=== PATIENT | female | born 1930 | race Caucasian/White ===

== ENCOUNTER 2017-02-28 15:04 | Inpatient (IN) | payer MEDICARE, OTHER ==
[~2017-02-28] VITALS: Ht 149.9 cm; Wt 69.3 kg
[2017-02-28] MEDS ORDERED: SOD CHLORIDE 0.9% 1,000 ML IV STA (15:32)
[2017-02-28 15:57] LABS: BASOPHIL # 0.1 10^3/ul (0.0-0.1); BASOPHILS % 1.1 % (0.0-2.0); EOSINOPHILS # 0.2 10^3/ul (0.0-0.5); EOSINOPHILS % 3.3 % (0.0-7.0); HEMATOCRIT 38.5 % (37.0-47.0); HEMOGLOBIN 13.3 g/dl (12.0-16.0); LYMPHOCYTES # 2.4 10^3/ul (0.8-2.9); LYMPHOCYTES % 32.5 % (15.0-51.0); MEAN CORPUSCULAR HEMOGLOBIN 31.1 pg (29.0-33.0); MEAN CORPUSCULAR HGB CONC 34.5 g/dl (32.0-37.0); MEAN CORPUSCULAR VOLUME 90.2 fl (82.0-101.0); MEAN PLATELET VOLUME 10.2 fl (7.4-10.4); MONOCYTE # 0.9 10^3/ul (0.3-0.9); MONOCYTES % 11.6 % (0.0-11.0); NEUTROPHIL # 3.8 10^3/ul (1.6-7.5); NEUTROPHILS % 51.2 % (39.0-77.0); PLATELET COUNT 231 10^3/UL (140-415); RED BLOOD COUNT 4.27 10^6/ul (4.20-5.40); RED CELL DISTRIBUTION WIDTH 13.2 % (11.5-14.5); WHITE BLOOD COUNT 7.3 10^3/ul (4.8-10.8)
[2017-02-28 16:07] LABS: ADD UMIC YES; UR ASCORBIC ACID 40 mg/dL (NEGATIVE); UR BILIRUBIN (Dip) NEGATIVE (NEGATIVE); UR BLOOD (Dip) 1+ mg/dL (NEGATIVE); UR CLARITY CLEAR (CLEAR); UR COLOR YELLOW (YELLOW); UR GLUCOSE (Dip) NEGATIVE (NEGATIVE); UR KETONES (Dip) NEGATIVE (NEGATIVE); UR LEUKOCYTE ESTERASE (Dip) NEGATIVE Leu/ul (NEGATIVE); UR NITRITE (Dip) NEGATIVE (NEGATIVE); UR RBC 8 /HPF (0-5); UR SPECIFIC GRAVITY (Dip) 1.017 (1.003-1.030); UR TOTAL PROTEIN (Dip) NEGATIVE (NEGATIVE); UR UROBILINOGEN (Dip) NEGATIVE (NEGATIVE)
[2017-02-28 16:19] LABS: ALANINE AMINOTRANSFERASE 30 IU/L (13-69); ALBUMIN 3.9 g/dl (3.3-4.9); ALBUMIN/GLOBULIN RATIO 0.92; ALKALINE PHOSPHATASE 98 IU/L (42-121); ANION GAP 19 (8-16); ASPARTATE AMINO TRANSFERASE 25 IU/L (15-46); BLOOD UREA NITROGEN 16 mg/dl (7-20); CALCIUM 8.9 mg/dl (8.4-10.2); CARBON DIOXIDE 26 mmol/L (21-31); CHLORIDE 103 mmol/L (97-110); CREATININE 0.64 mg/dl (0.44-1.00); GLUCOSE 104 mg/dl (70-220); POTASSIUM 3.8 mmol/L (3.5-5.1); SODIUM 144 mmol/L (135-144); TOTAL PROTEIN 8.1 g/dl (6.1-8.1)
[2017-02-28 16:33] LABS: TROPONIN-I < 0.012 ng/ml (0.00-0.12)
[2017-02-28] MEDS ORDERED: OXYB5TAB7 PO (16:57)
[2017-02-28] MEDS ORDERED: IBUP-1542 PO (16:58)
[2017-02-28] MEDS ORDERED: MECL-77 PO (16:58)
[2017-02-28] MEDS ORDERED: AMLO5TAB4 PO (16:59)
[2017-02-28] MEDS ORDERED: IOHEXOL 100 ML ONE (17:05)
[2017-02-28] MEDS ORDERED: SOD CHLORIDE 0.9% 100 ML ONE (17:05)
--- NOTE | 2017-02-28 17:10 | ERA ---
ER Documentation Chief Complaint Date/Time DATE: 02/28/17 TIME: 17:04 Chief Complaint Per Daughter Mother has been altered with slurred speech since yesterday HPI 86-year-old woman brought in by daughter for slurred speech and right-sided facial weakness beginning around 5 PM yesterday about 24 hours ago. Daughter states she has had no fevers or chills, no weakness in her arms or legs, no fall , no head injury, no seizure activity. ROS All systems reviewed and are negative except as per history of present illness. Medications Home Meds Reported Medications Amlodipine Besylate* (Norvasc*) 5 Mg Tablet, 5 MG PO BID, TAB 02/28/17 Ibuprofen* (Ibuprofen*) 600 Mg Tablet, 600 MG PO Q8 Y for NEEDED, TAB 02/28/17 Meclizine Hcl* (Meclizine Hcl*) 25 Mg Tablet, 12.5 MG PO NEEDED Y for DIZZINESS, TAB 02/28/17 Oxybutynin Chloride* (Ditropan*) 5 Mg Tab, 5 MG PO DAILY Y for PRN, TAB 02/28/17 Allergies Allergies: Coded Allergies: No Known Allergy (Unverified , 02/28/17) PMhx/Soc Hypertension Medical and Surgical Hx: pt denies Surgical Hx History of Surgery: No Anesthesia Reaction: No Hx Neurological Disorder: No Hx Respiratory Disorders: No Hx Cardiac Disorders: Yes (HTN) Hx Alcohol Use: No Hx Substance Use: No Hx Tobacco Use: No Smoking Status: Never smoker FmHx Family History: No diabetes Physical Exam Vitals Vital Signs Date Time Temp Pulse Resp B/P Pulse Ox O2 Delivery O2 Flow Rate FiO2 02/28/17 17:29 98.3 80 20 163/86 96 02/28/17 15:08 98.3 84 20 198/83 96 Physical Exam GENERAL: Well-developed, well-nourished, well-hydrated, in no apparent distress , looks nontoxic in appearance HEENT: Moist mucous membranes, pink conjunctiva, no cervical spine tenderness or step-off deformities, no goiter, no jaundice or icterus, extraocular movements intact without pain. No submandibular induration, and no pharyngeal erythema NEURO: Able to answer questions and follow commands, pupils equal round reactive to light, there is facial paresis on the right sparing the forehead, and dysarthria, no pronator drift, strength 5/5 in upper and lower extremities bilaterally CARDIAC: Regular rate and rhythm, no murmurs rubs or gallops LUNGS: Clear bilaterally no wheezing crackles or stridor ABDOMEN: Soft nontender, no guarding, no rigidity, no rebound, no psoas sign no obturator sign. Normoactive bowel sounds SKIN: Warm and dry to touch, no abrasions, contusions, or hematomas, no lacerations, no ecchymosis, no target lesions, and without ulcers EXTREMITIES: No clubbing cyanosis or edema, calves are bilaterally symmetrical, no Homans sign, no popliteal cord sign. Distal pulses equal and bilateral PSYCH: Normal affect without agitation or irritability Result Diagram: 02/28/17 1550 02/28/17 1550 Results 24 hrs Laboratory Tests Test 02/28/17 15:50 02/28/17 15:55 White Blood Count 7.310^3/ul Red Blood Count 4.2710^6/ul Hemoglobin 13.3g/dl Hematocrit 38.5% Mean Corpuscular Volume 90.2fl Mean Corpuscular Hemoglobin 31.1pg Mean Corpuscular Hemoglobin Concent 34.5g/dl Red Cell Distribution Width 13.2% Platelet Count 33143^3/UL Mean Platelet Volume 10.2fl Neutrophils % 51.2% Lymphocytes % 32.5% Monocytes % 11.6% Eosinophils % 3.3% Basophils % 1.1% Nucleated Red Blood Cells % 0.0/100WBC Neutrophils # 3.810^3/ul Lymphocytes # 2.410^3/ul Monocytes # 0.910^3/ul Eosinophils # 0.210^3/ul Basophils # 0.110^3/ul Nucleated Red Blood Cells # 0.010^3/ul Sodium Level 144mmol/L Potassium Level 3.8mmol/L Chloride Level 103mmol/L Carbon Dioxide Level 26mmol/L Anion Gap 19 Blood Urea Nitrogen 16mg/dl Creatinine 0.64mg/dl Glucose Level 104mg/dl Calcium Level 8.9mg/dl Total Bilirubin 1.0mg/dl Direct Bilirubin 0.00mg/dl Indirect Bilirubin 1.0mg/dl Aspartate Amino Transf (AST/SGOT) 25IU/L Alanine Aminotransferase (ALT/SGPT) 30IU/L Alkaline Phosphatase 98IU/L Troponin I < 0.012ng/ml Total Protein 8.1g/dl Albumin 3.9g/dl Globulin 4.20g/dl Albumin/Globulin Ratio 0.92 Lipase 158U/L Urine Color YELLOW Urine Clarity CLEAR Urine pH 6.0 Urine Specific [place] 1.017 Urine Ketones NEGATIVEmg/dL Urine Nitrite NEGATIVEmg/dL Urine Bilirubin NEGATIVEmg/dL Urine Urobilinogen NEGATIVEmg/dL Urine Leukocyte Esterase NEGATIVELeu/ul Urine Microscopic RBC 8/HPF Urine Microscopic WBC 1/HPF Urine Hemoglobin 1+mg/dL Urine Glucose NEGATIVEmg/dL Urine Total Protein NEGATIVEmg/dl Current Medications Medications (Trade) Dose Ordered Sig/Otto Route PRN Reason Start Time Stop Time Status Last Admin Dose Admin Sodium Chloride (NS) 1,000 ml @ 1,000 mls/hr Q1H STAT IV 02/28/17 15:32 02/28/17 16:31 DC 02/28/17 15:53 IV Flush 10 ml 10 ml STK-MED ONCE .ROUTE 02/28/17 17:05 02/28/17 17:06 DC 02/28/17 17:34 Sodium Chloride 100 ml @ ud STK-MED ONCE .ROUTE 02/28/17 17:05 02/28/17 17:06 DC 02/28/17 17:34 Iohexol (Omnipaque) 100 ml @ ud STK-MED ONCE .ROUTE 02/28/17 17:05 02/28/17 17:06 DC 02/28/17 17:35 Aspirin (Aspirin) 324 mg ONCE ONCE PO 02/28/17 18:30 02/28/17 18:31 DC Procedures/MDM IV line was established patient was placed on media monitor rhythm strip revealed a sinus rhythm at about 80 bpm with upright P and T waves. Patient was afebrile. EKG performed, read by me: 80 bpm, normal sinus rhythm, normal axis, no acute ST segment changes, narrow QRS complex, with good R-wave progression in precordial leads. Chest X-ray 1V Interpreted by me: Soft Tissue: No acute abnormalities Bones: No acute abnormalities Mediastinum/Cardiac Silhouette/Lungs: No acute abnormalities CT scan of the brain was performed that was negative for acute bleed mass or shift. CTA of the brain and neck was performed there was no vascular occlusion or stenosis noted in the brain or large vessels of the neck. Please refer to radiologist dictation for full report. CBC and electrolytes are normal, liver function tests normal, troponin negative , urine analysis negative for infection. I administered aspirin 324 mg p.o. for neuroprotective measures. It seems patient suffered a stroke yesterday she is out of the window for TPA and is not a candidate for neurologic endovascular intervention either. Patient will be managed medically and will be admitted to telemetry setting. Departure Diagnosis: Primary Impression: Stroke Qualified Code: I63.9 - Cerebrovascular accident (CVA), unspecified mechanism Additional Impression: Dysarthria Condition: FRANSISCO Galvez MD Feb 28, 2017 17:10
--- NOTE | 2017-02-28 17:22 | RADRPT ---
PROCEDURE: Chest x-ray CLINICAL INDICATION: Abdominal pain TECHNIQUE: Chest single view COMPARISON: None FINDINGS: There is mild cardiomegaly and an sclerotic aortic calcification. The pulmonary vessels are normal i n caliber. H minimal linear scarring in the left mid lung field. Lungs otherwise clear. Costophre donis angles are sharp. There is an oval subcutaneous calcification within the right axilla or right breast. IMPRESSION: 1. Mild cardiomegaly and an sclerotic aortic calcification. 2. No CHF or pneumonia. 3. Oval soft tissue calcification in the right axilla or right breast. This may represent calcifie d fibroadenoma versus calcified lymph node RPTAT: HH .John Cameron MD, MD Date Time Electronically viewed and signed by .John Cameorn MD, on 02/28/2017 17:21 .W/
--- NOTE | 2017-02-28 17:31 | RADRPT ---
PROCEDURE: CT Brain without contrast. CLINICAL INDICATION: Neurologic deficit TECHNIQUE: A CT of the brain was performed on multidetector high-resolution CT scanner utilizing a xial sections from the skull base through the vertex without contrast. One or more of the following dose reduction techniques were used: Automated exposure control, Adjustment of the mA and/or kV acc ording to patient size, and/or use of iterative reconstruction technique. DOSE: CTDI = 43 mGy and the DLP = 852 mGy-cm. COMPARISON: None available FINDINGS: No acute intracranial hemorrhage, significant mass effect or midline shift. Mild hypoattenuation of the cerebral white matter is compatible with chronic microvascular ischemic changes. Vascular calcif ications. Prominence of the cortical sulci and ventricles are related to mild cerebral volume loss. Left maxillary sinus fluid and mucosal thickening. IMPRESSION: No acute intracranial hemorrhage or mass effect. 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 RPTAT: AA .Flaco Garcia MD, MD Date Time Electronically viewed and signed by .Flaco Garcia MD, on 02/28/2017 17:31 .T/
[2017-02-28] MEDS ORDERED: ASPIRIN 81 MG TAB PO ONE (18:30)
--- NOTE | 2017-02-28 18:31 | RADRPT ---
PROCEDURE: CTA Neck. CLINICAL INDICATION: slurred speech TECHNIQUE: CTA of the neck was obtained. Sagittal and coronal reformations and MIPs were provided. T he administered radiation dose was CTDI vol = 18.15, 18.27 mGy, DLP = 701.12 mGy-cm. Images were ob tained prior following the intravenous contrast administration of 100 cc was Omnipaque 350 contrast. Coronal and sagittal as well as maximal intensity projection reformations were obtained. One or mo re of the following dose reduction techniques were used: Automated exposure control, Adjustment of t he mA and/or kV according to patient size, or Use of iterative reconstruction technique. COMPARISON: No prior studies are available for comparison. FINDINGS: CTA neck: Aorta: Normal in caliber. There is common origin of the innominate artery and left common carotid ar renuka systems of the arch. Right common carotid artery: Patent without evidence of stenosis. There is minimal calcific atherosc lerotic plaque at the bifurcation from the right common carotid artery. Right internal carotid artery: Patent without evidence of significant stenosis. The cervical right internal carotid artery is tortuous, with a kink noted at the C2 level. There is minimal eccentric c alcific atherosclerotic plaque near the origin of the right internal carotid artery. Right external carotid artery: Patent without evidence of stenosis. Left common carotid artery: Patent without evidence of stenosis. There is a mild calcific atheroscle rotic plaque at the bifurcation of the left common carotid artery. Left internal carotid artery: Patent without evidence of stenosis. The cervical left internal caroti d artery is tortuous. Left external carotid artery: Patent without evidence of stenosis. V1/V2 vertebral arteries: Patent bilaterally without evidence of stenosis. The proximal vertebral ar teries are tortuous bilaterally. Vertebral artery dominance: The right vertebral artery is slightly dominant. CT neck: There is no cervical adenopathy. The thyroid gland is enlarged and contains multiple heterogeneous t hyroid nodules, some demonstrating coarse calcifications. The largest nodule measures up to 18 mm a nd is located in the left thyroid lobe. There are emphysematous changes and scattered atelectasis a nd / or scarring in the partially imaged upper lungs. There is lucency surrounding a left anterior m andibular tooth, suggesting odontogenic disease. Recommend dental examination. There is diffuse subj ective osteopenia. There are multilevel degenerative changes of the cervical spine, most prominent a t C5-C6. IMPRESSION: 1. No evidence of bilateral internal carotid artery stenosis by NASCET criteria. 2. The thyroid gland is enlarged and contains multiple heterogeneous thyroid nodules, some demonstra ting coarse calcifications. The largest nodule measures up to 18 mm and is located in the left thyr oid lobe. Consider thyroid ultrasound for further evaluation. 3. Abnormal osseous lucency surrounding a left anterior mandibular tooth, suggesting odontogenic dis ease. Recommend dental examination. 4. Multilevel degenerative changes of the cervical spine, most prominent at C5-C6. Further findings as detailed above. RPTAT: QQ Physician Ashwini Date Time Electronically viewed and signed by Physician Ashwini on 02/28/2017 18:31 /
--- NOTE | 2017-02-28 18:50 | RADRPT ---
PROCEDURE: CTA Brain. CLINICAL INDICATION: slurred speech TECHNIQUE: The study was performed utilizing a GE 64-slice multidetector CT scanner. Direct spiral 0.63 mm axial sections were obtained through the intracranial vasculature with the use of 100 cc of Onipaque 350 nonionic intravenous contrast material. Coronal and sagittal MPRs as well as maximal intensity projection reformations were obtained. 3D images were also made. The images were reviewed on a PACS workstation. The CTDIvol is 18.15, 18.27 mGy and the DLP is 701.12 mGycm. COMPARISON: No prior studies are available for comparison. FINDINGS: The internal carotid arteries are patent and normal in caliber. There is mild scattered calcific ath erosclerotic plaque involving the cavernous internal carotid arteries bilaterally. The anterior cere bral and middle cerebral arteries are patent and normal in caliber. Anterior communicating artery is faintly seen. The vertebral arteries, basilar artery, superior cerebellar arteries, and posterior c erebral arteries are all normal in appearance. The vertebral artery is slightly dominant. There is suggestion of a small fenestration of the proximal basilar artery at the vertebral basilar junction, an embryologic anatomic variant. There is origin of the left posterior cerebral artery (hypo plastic left P1 segment). No cerebral aneurysm is identified. No vascular malformation is seen. The right transverse and sigmoid sinus and internal jugular venous system is dominant. There postsurgical changes of prior cataract surgery. There is mucosal disease and small air fluid level in the left maxillary sinus, suggesting to left m axillary sinusitis. There is mild mucosal disease and / or secretions noted in the dependent portion of the left sphenoid sinus. There is lucency surrounding a left anterior mandibular tooth, suggesting odontogenic disease. There is diffuse calvarial thickening with widening of the diploic spaces and regions of focal scler osis ("cotton wool" appearance), suggestive of calvarial Paget's disease. There are degenerative changes of the visualized cervical spine. IMPRESSION: 1. No evidence of occlusion, significant stenosis, or cerebral aneurysm of the [place] of [place] or i t's major proximal branches. 2. 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 3. Abnormal osseous lucency surrounding a left anterior mandibular tooth, suggesting odontogenic dis ease. Recommend dental examination. 4. Left maxillary sinus mucosal disease and small air fluid level, suggesting acute left maxillary s inusitis. 5. 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 RPTAT: QQ Kalani Lacy Physician Date Time Electronically viewed and signed by Kalani Lacy, Physician on 02/28/2017 18:49 RC/
[2017-02-28] MEDS ORDERED: ACETAMINOPHEN 325 MG TAB PO PRN (20:30)
[2017-02-28] MEDS ORDERED: BISACODYL (EC) 5 MG TAB PO PRN (20:30)
[2017-02-28] MEDS ORDERED: ONDANSETRON 4 MG INJ IV PRN (20:30)
[2017-02-28] MEDS ORDERED: NACL 0.9% 3 ML SYG IV SCH (20:30)
[2017-02-28] MEDS ORDERED: DOCUSATE SODIUM 100 MG CAP PO PRN (20:30)
[2017-02-28 20:56] VITALS: TEMP 98.3
[2017-02-28] MEDS ORDERED: FAMOTIDINE 20 MG TAB PO SCH (21:00)
[2017-02-28 21:30] VITALS: BP 161/78; RESP 17
[2017-02-28 21:46] VITALS: Ht 149.9 cm; Wt 69.3 kg
[2017-02-28 22:05] VITALS: PULSE 70
[2017-02-28] MEDS ORDERED: MECLIZINE 12.5 MG TAB PO PRN (23:00)
[2017-02-28] MEDS ORDERED: OXYBUTYNIN 5 MG TAB PO PRN (23:00)
[2017-03-01] VITALS (12 sets, daily range): BP systolic 137–170; BP diastolic 69–77; PULSE 65–75; RESP 16–18
[2017-03-01] MEDS: AMLODIPINE 5 MG TAB PO SCH ×3 (00:02→21:00)
--- NOTE | 2017-03-01 03:52 | HP ---
Date/Time of Note Date/Time of Note DATE: 03/01/17 TIME: 03:23 Assessment/Plan VTE Prophylaxis VTE Prophylaxis Intervention: SCD's Lines/Catheters Urinary Cath still in place: No Assessment/Plan Chief Complaint/Hosp Course This is a 86-year-old female being admitted to the telemetry floor for: #1 slurred speech and right-sided facial weakness: Rule out TIA/stroke versus musculoskeletal: Imaging studies so far negative for any signs of acute stroke. CTA of the neck was not showing any signs of carotid artery stenosis. At the current time will obtain an MRI of the brain. PT OT evaluation. Speech therapy evaluation. Will obtain neurology consult. While this could be neurologic in nature there is also a possibility that this could be related to TMJ dysfunction. I will order an x-ray of the TMJ to help with this assessment this pain could also be secondary to poor dentition as it was signs of an odontogenic disease on the CAT scan. #2 thyroid nodules: There is an incidental finding of multiple thyroid nodules with the greatest being 18 mm in size. Will obtain a TSH level and a ultrasound of the thyroid. #3 abnormal dentition: There is signs of possible odontogenic disease on imaging studies. Patient will need to follow-up as an outpatient for dental examination. #4 hypertension: As it has been more than 24 hours since patient's symptoms occurred I do not feel this time there is a need for permissive hypertension. At the current time will resume patient's home blood pressure medication. #5 maxillary sinusitis: There appears to be signs of acute sinusitis on CT scan. At the current time patient is afebrile and does not appear to have any sinus symptoms on examination. We will continue to monitor this and prescribe antibiotics if indicated. #6 DVT GI prophylaxis: SCDs, as a nayana Further treatment strategy will be implemented as per the clinical course Problems: HPI/ROS Admit Date/Time Admit Date/Time Feb 28, 2017 at 18:06 Hx of Present Illness Chief complaint: Slurred speech This is a 86-year-old woman brought in by daughter for slurred speech and right- sided facial weakness beginning around 5 PM yesterday about 24 hours ago. The daughter states that her mom was just sitting and eating food and all of a sudden she noticed food dripping from the right side of her mouth she also did experience pain in her jaw. Daughter states she has had no fevers or chills, no weakness in her arms or legs, no fall, no head injury, no seizure activity. Denies any changes in her vision. Denies any lightheadedness or loss of consciousness. Allergies: NKDA Medications: See YOCASTA THURSTON Const: As per HPI Eyes : No pain discharge or redness or change in visual acuity ENT: No pain, sore throat, congestion, congestion, dysphagia or discharge Respiratory: No shortness of breath, cough, sputum, wheezing, or pleuritic pain Cardiovascular: No chest pain, palpitation, PND, or edema GI : no change in appetite, abdominal pain, nausea, vomiting, diarrhea, constipation, or change in the color his stool Genitourinary: No dysuria, hematuria, flank pain , discharge or CVA tenderness Musculoskeletal: As per HPI Skin: No rash, bruising or hives Neuro: As per HPI Endocrine: No polyuria, polydipsia, temperature intolerance Psych: No hallucination, depression, anxiety or suicidal ideation PMH/Family/Social Past Medical History Hypertension Past Surgical History Bilateral knee surgery, cholecystectomy Family History Significant Family History: no pertinent family hx Social History Alcohol Use: none Smoking Status: Never smoker Drug Use: none Exam/Review of Systems Vital Signs Vitals Vital Signs Date Time Temp Pulse Resp B/P Pulse Ox O2 Delivery O2 Flow Rate FiO2 03/01/17 00:38 98.1 69 18 170/74 95 02/28/17 20:56 Room Air Exam Exam General: This is a pleasant 86 year female lying comfortably in bed in no acute distress. HEENT: Atraumatic, normocephalic. The pupils are equal, round and reactive. Extraocular motor are intact, tenderness to palpation at the region of the right jaw, no jaw laxity noted on examination. Neck: Supple with full range of motion. No rigidity or meningismus Chest: Nontender Lungs: Clear to auscultation bilaterally no crackles rales or wheezing Heart: Normal S1-S2, Regular rhythm and rate. No overt murmurs appreciate Abdomen: Soft , nontender, nondistended , bowel sounds are present. No guarding no rebound tenderness , No masses or organomegaly. No costovertebral temporal angle mass Extremities: Normal to inspection, no edema no cyanosis Neurologic: Normal mental status, speech normal, right-sided facial droop noted , no gait dysfunction, full range of motion 4 of bilateral upper extremities and lower extremities, no pronator drift Additional Comments PROCEDURE: CT Brain without contrast. CLINICAL INDICATION: Neurologic deficit TECHNIQUE: A CT of the brain was performed on multidetector high-resolution CT scanner utilizing axial sections from the skull base through the vertex without contrast. One or more of the following dose reduction techniques were used: Automated exposure control, Adjustment of the mA and/or kV according to patient size, and/or use of iterative reconstruction technique. DOSE: CTDI = 43 mGy and the DLP = 852 mGy-cm. COMPARISON: None available FINDINGS: No acute intracranial hemorrhage, significant mass effect or midline shift. Mild hypoattenuation of the cerebral white matter is compatible with chronic microvascular ischemic changes. Vascular calcifications. Prominence of the cortical sulci and ventricles are related to mild cerebral volume loss. Left maxillary sinus fluid and mucosal thickening. IMPRESSION: No acute intracranial hemorrhage or mass effect. 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 RPTAT: AA .Flaco Garcia MD, MD Date Time Electronically viewed and signed by .Flaco Garcia MD, MD on 02/28/2017 17:31 .T/ CC: FRANSISCO BRENNAN MD PROCEDURE: Chest x-ray CLINICAL INDICATION: Abdominal pain TECHNIQUE: Chest single view COMPARISON: None FINDINGS: There is mild cardiomegaly and an sclerotic aortic calcification. The pulmonary vessels are normal in caliber. H minimal linear scarring in the left mid lung field. Lungs otherwise clear. Costophrenic angles are sharp. There is an oval subcutaneous calcification within the right axilla or right breast. IMPRESSION: 1. Mild cardiomegaly and an sclerotic aortic calcification. 2. No CHF or pneumonia. 3. Oval soft tissue calcification in the right axilla or right breast. This may represent calcified fibroadenoma versus calcified lymph node RPTAT: HH .John Cameron MD, MD Date Time Electronically viewed and signed by .John Cameron MD, MD on 02/28/2017 17:21 .W/ CC: FRANSISCO BRENNAN MD PROCEDURE: CTA Brain. CLINICAL INDICATION: slurred speech TECHNIQUE: The study was performed utilizing a GE 64-slice multidetector CT scanner. Direct spiral 0.63 mm axial sections were obtained through the intracranial vasculature with the use of 100 cc of Onipaque 350 nonionic intravenous contrast material. Coronal and sagittal MPRs as well as maximal intensity projection reformations were obtained. 3D images were also made. The images were reviewed on a PACS workstation. The CTDIvol is 18.15, 18.27 mGy and the DLP is 701.12 mGycm. COMPARISON: No prior studies are available for comparison. FINDINGS: The internal carotid arteries are patent and normal in caliber. There is mild scattered calcific atherosclerotic plaque involving the cavernous internal carotid arteries bilaterally. The anterior cerebral and middle cerebral arteries are patent and normal in caliber. Anterior communicating artery is faintly seen. The vertebral arteries, basilar artery, superior cerebellar arteries, and posterior cerebral arteries are all normal in appearance. The vertebral artery is slightly dominant. There is suggestion of a small fenestration of the proximal basilar artery at the vertebral basilar junction, an embryologic anatomic variant. There is origin of the left posterior cerebral artery (hypoplastic left P1 segment). No cerebral aneurysm is identified. No vascular malformation is seen. The right transverse and sigmoid sinus and internal jugular venous system is dominant. There postsurgical changes of prior cataract surgery. There is mucosal disease and small air fluid level in the left maxillary sinus, suggesting to left maxillary sinusitis. There is mild mucosal disease and / or secretions noted in the dependent portion of the left sphenoid sinus. There is lucency surrounding a left anterior mandibular tooth, suggesting odontogenic disease. There is diffuse calvarial thickening with widening of the diploic spaces and regions of focal sclerosis ("cotton wool" appearance), suggestive of calvarial Paget's disease. There are degenerative changes of the visualized cervical spine. IMPRESSION: 1. No evidence of occlusion, significant stenosis, or cerebral aneurysm of the [place] or it's major proximal branches. 2. 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 3. Abnormal osseous lucency surrounding a left anterior mandibular tooth, suggesting odontogenic disease. Recommend dental examination. 4. Left maxillary sinus mucosal disease and small air fluid level, suggesting acute left maxillary sinusitis. 5. 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 RPTAT: QQ Physician Ashwini Date Time Electronically viewed and signed by Kalani Lacy Physician on 02/28/2017 18: 49 RC/ CC: FRANSISCO BRENNAN MD PROCEDURE: CTA Neck. CLINICAL INDICATION: slurred speech TECHNIQUE: CTA of the neck was obtained. Sagittal and coronal reformations and MIPs were provided. The administered radiation dose was CTDI vol = 18.15, 18.27 mGy, DLP = 701.12 mGy-cm. Images were obtained prior following the intravenous contrast administration of 100 cc was Omnipaque 350 contrast. Coronal and sagittal as well as maximal intensity projection reformations were obtained. One or more of the following dose reduction techniques were used: Automated exposure control, Adjustment of the mA and/or kV according to patient size, or Use of iterative reconstruction technique. COMPARISON: No prior studies are available for comparison. FINDINGS: CTA neck: Aorta: Normal in caliber. There is common origin of the innominate artery and left common carotid artery systems of the arch. Right common carotid artery: Patent without evidence of stenosis. There is minimal calcific atherosclerotic plaque at the bifurcation from the right common carotid artery. Right internal carotid artery: Patent without evidence of significant stenosis. The cervical right internal carotid artery is tortuous, with a kink noted at the C2 level. There is minimal eccentric calcific atherosclerotic plaque near the origin of the right internal carotid artery. Right external carotid artery: Patent without evidence of stenosis. Left common carotid artery: Patent without evidence of stenosis. There is a mild calcific atherosclerotic plaque at the bifurcation of the left common carotid artery. Left internal carotid artery: Patent without evidence of stenosis. The cervical left internal carotid artery is tortuous. Left external carotid artery: Patent without evidence of stenosis. V1/V2 vertebral arteries: Patent bilaterally without evidence of stenosis. The proximal vertebral arteries are tortuous bilaterally. Vertebral artery dominance: The right vertebral artery is slightly dominant. CT neck: There is no cervical adenopathy. The thyroid gland is enlarged and contains multiple heterogeneous thyroid nodules, some demonstrating coarse calcifications. The largest nodule measures up to 18 mm and is located in the left thyroid lobe. There are emphysematous changes and scattered atelectasis and / or scarring in the partially imaged upper lungs. There is lucency surrounding a left anterior mandibular tooth, suggesting odontogenic disease. Recommend dental examination. There is diffuse subjective osteopenia. There are multilevel degenerative changes of the cervical spine, most prominent at C5-C6. IMPRESSION: 1. No evidence of bilateral internal carotid artery stenosis by NASCET criteria. 2. The thyroid gland is enlarged and contains multiple heterogeneous thyroid nodules, some demonstrating coarse calcifications. The largest nodule measures up to 18 mm and is located in the left thyroid lobe. Consider thyroid ultrasound for further evaluation. 3. Abnormal osseous lucency surrounding a left anterior mandibular tooth, suggesting odontogenic disease. Recommend dental examination. 4. Multilevel degenerative changes of the cervical spine, most prominent at C5- C6. Further findings as detailed above. RPTAT: QQ Physician Ashwini Date Time Electronically viewed and signed by Physician Ashwini on 02/28/2017 18: 31 RC/ CC: FRANSISCO BRENNAN MD EK bpm, normal sinus rhythm, normal axis, no acute ST segment changes, narrow QRS complex, with good R-wave progression in precordial leads. as per ed physician documentation Labs Result Diagram: 02/28/17 1550 02/28/17 1550 Medications Medications Current Medications Ondansetron HCl (Zofran Inj) 4 mg Q6H PRN IV NAUSEA AND/OR VOMITING; Start 06/06 at 20:30 Aspirin (Aspirin) 81 mg DAILY PO ; Start 03/01/17 at 09:00 Acetaminophen (Tylenol Tab) 650 mg Q6H PRN PO PAIN LEVEL 1-3 OR FEVER; Start at 20:30 Docusate Sodium (Colace) 100 mg Q12H PRN PO CONSTIPATION; Start 02/28/17 at 20: 30 Bisacodyl (Dulcolax) 5 mg DAILY PRN PO CONSTIPATION; Start 02/28/17 at 20:30 Famotidine (Pepcid) 20 mg DAILY PO Last administered on 02/28/17 20:49; Admin Dose 20 MG; Start 02/28/17 at 21:00 Amlodipine Besylate (Norvasc) 5 mg BID PO Last administered on 03/01/17 00:02 ; Admin Dose 5 MG; Start 02/28/17 at 23:00 Meclizine HCl (Antivert) 12.5 mg BID PRN PO DIZZINESS; Start 02/28/17 at 23:00 Oxybutynin Chloride (Ditropan) 5 mg DAILY PRN PO PRN; Start 02/28/17 at 23:00 BLANCA BERTRAND Mar 01, 2017 03:40
[2017-03-01 07:52] LABS: BASOPHIL # 0.1 10^3/ul (0.0-0.1); EOSINOPHILS # 0.2 10^3/ul (0.0-0.5); EOSINOPHILS % 3.3 % (0.0-7.0); HEMATOCRIT 41.1 % (37.0-47.0); LYMPHOCYTES # 2.1 10^3/ul (0.8-2.9); LYMPHOCYTES % 29.1 % (15.0-51.0); MEAN CORPUSCULAR HEMOGLOBIN 30.7 pg (29.0-33.0); MEAN CORPUSCULAR HGB CONC 34.1 g/dl (32.0-37.0); MEAN CORPUSCULAR VOLUME 90.1 fl (82.0-101.0); MEAN PLATELET VOLUME 10.7 fl (7.4-10.4); MONOCYTE # 0.8 10^3/ul (0.3-0.9); MONOCYTES % 10.3 % (0.0-11.0); NEUTROPHIL # 4.1 10^3/ul (1.6-7.5); NUCLEATED RED BLOOD CELLS% 0.3 /100WBC (0.0-0.0); PLATELET COUNT 255 10^3/UL (140-415); RED BLOOD COUNT 4.56 10^6/ul (4.20-5.40); RED CELL DISTRIBUTION WIDTH 13.2 % (11.5-14.5); WHITE BLOOD COUNT 7.3 10^3/ul (4.8-10.8)
[2017-03-01 08:10] LABS: ALBUMIN 3.9 g/dl (3.3-4.9); ALBUMIN/GLOBULIN RATIO 0.92; BILIRUBIN,INDIRECT 1.4 mg/dl (0-1.1); BILIRUBIN,TOTAL 1.4 mg/dl (0.2-1.3); CALCIUM 8.8 mg/dl (8.4-10.2); CHOL/HDL RATIO 4.2 RATIO; CREATININE 0.6 mg/dl (0.44-1.00); POTASSIUM 3.7 mmol/L (3.5-5.1); TOTAL PROTEIN 8.1 g/dl (6.1-8.1)
[2017-03-01 08:41] LABS: THYROID STIMULATING HORMONE 2.01 MIU/L (0.465-4.680)
[2017-03-01] MEDS: ASPIRIN 81 MG TAB PO SCH (09:35)
--- NOTE | 2017-03-01 17:12 | RADRPT ---
Echocardiogram Report Patient Name: DELORES LALA Gender: Female Date: 1930 Study Date: 01-Mar-2017 [employer] Laster: Diana [facility] Location: 5558 Ref. Physician: BLANCA BERTRAND Quality: Adequate Procedures: Transthoracic echocardiogram with complete 2D, M-Mode, and doppler examination. Indications: Cerebrovascular Accident. 2D/M Mode Doppler Measurement Value Normal Ranges Measurement Value Normal Ranges LVIDd 2D 3.7 3.5 - 5.6 cm AV Peak Jaspreet 1.5 m/sec LVIDs 2D 2.5 2.1 - 4.1 cm AV Peak PG 9.0 mmHg FS 2D 32.2 % LVOT Peak Jaspreet 1.1 m/sec LVPWd 2D 1.2 0.6 - 1.1 cm LVOT Peak PG 5.0 mmHg IVSd 2D 1.2 0.6 - 1.1 cm MV E Peak Jaspreet 0.5 m/sec IVS/LVPW 2D 1.0 MV A Peak Jaspreet 0.7 m/sec AoR Diam 2D 3.1 2.0 - 3.7 cm MV E/A 0.7 LA/Ao 2D 1 0 - 1 MV Decel Time 282 msec EDV 2D 49.0 cm3 MV E/A 0.7 ESV 2D 15.3 cm3 TR Peak Jaspreet 3.0 m/sec LA Dimen 2D 3.3 2.3 - 4.0 cm TR Peak PG 37.0 mmHg RVSP 40.0 mmHg Findings Left Ventricle: Normal left ventricular systolic function. Normal left ventricular cavity size. Normal left ventricular wall thickness. Ejection fraction is visually estimated at 65 %. Tissue Doppler/Mitral Doppler indices are consistent with impaired relaxation (Stage I diastolic dysfunction). Right Ventricle: Normal right ventricular size. Normal right ventricular systolic function. Left Atrium: The left atrium is normal in size. Right Atrium: The right atrium is normal in size. Mitral Valve: Mild mitral leaflet calcification. Mild mitral annular calcification. Trace mitral regurgitation. Aortic Valve: Aortic sclerosis without stenosis. Tricuspid Valve: Normal appearance of the tricuspid valve. Estimated peak PA systolic pressure 40 mmHg. There is mild tricuspid regurgitation. Pulmonic Valve: Pulmonic valve not well visualized. There is trace pulmonic regurgitation. Pericardium: Normal pericardium with no significant pericardial effusion. Aorta: Normal aortic root. IVC: Normal size and normal respiratory collapse consistent with normal right atrial pressure. Conclusions 1.Normal left ventricular systolic function. Normal left ventricular cavity size. Normal left ventricular wall thickness. Ejection fraction is visually estimated at 65 %. Tissue Doppler/Mitral Doppler indices are consistent with impaired relaxation (Stage I diastolic dysfunction). 2.Normal right ventricular size. Normal right ventricular systolic function. 3.Mild mitral leaflet calcification. Mild mitral annular calcification. Trace mitral regurgitation. 4.Aortic sclerosis without stenosis. 5.Normal appearance of the tricuspid valve. Estimated peak PA systolic pressure 40 mmHg. There is mild tricuspid regurgitation. 6.Mild pulmonary hypertension. 7.Normal pericardium with no significant pericardial effusion. Electronically Signed By: Roddy Tamez 01-Mar-2017 17:12:17 -0700 Patient Name: DELORES LALA Study Date: 01-Mar-2017 [id number]
[2017-03-01] MEDS ORDERED: AL HYDROX/MG HYDROX/SIMETH 30 ML CUP PO PRN (17:30)
--- NOTE | 2017-03-01 18:00 | PN ---
Date/Time of Note Date/Time of Note DATE: 03/01/17 TIME: 17:56 Assessment/Plan VTE Prophylaxis VTE Prophylaxis Intervention: SCD's Lines/Catheters IV Catheter Type (from Nrsg): Saline Lock Urinary Cath still in place: No Assessment/Plan Assessment/Plan 86 yo F admitted for ?R sided facial weakness v jaw pain. TIA v TMJ MRI brain to complete stroke work up though at this time clinical scenario more consistent with TMJ #thyroid nodules: incidental finding on imaging: TSH nl, US pending #HTN: home BP meds DVT prophx Subjective 24 Hr Interval Summary Free Text/Dictation Still unclear if pt having facial weakness v jaw pain despite assistance of use of language line Exam/Review of Systems Vital Signs Vitals Vital Signs Date Time Temp Pulse Resp B/P Pulse Ox O2 Delivery O2 Flow Rate FiO2 03/01/17 16:13 65 03/01/17 15:57 98.3 16 151/69 94 02/28/17 20:56 Room Air Intake and Output 02/28/17 02/28/17 03/01/17 15:00 23:00 07:00 Intake Total 350 ml Balance 350 ml Exam nad, sitting up in bed able to raise both eyebrows no sig R sided facial droop no mrg lungs clear abd soft no rashes able to puff out both cheeks mild pain in R TMJ with jaw movements Results Result Diagram: 03/01/17 0659 03/01/17 0658 Results 24 hrs Laboratory Tests Test 03/01/17 06:58 03/01/17 06:59 Sodium Level 142 Potassium Level 3.7 Chloride Level 102 Carbon Dioxide Level 25 Anion Gap 19 H Blood Urea Nitrogen 11 Creatinine 0.60 Glucose Level 102 Calcium Level 8.8 Total Bilirubin 1.4 H Direct Bilirubin 0.00 Indirect Bilirubin 1.4 H Aspartate Amino Transf (AST/SGOT) 26 Alanine Aminotransferase (ALT/SGPT) 30 Alkaline Phosphatase 96 Total Protein 8.1 Albumin 3.9 Globulin 4.20 H Albumin/Globulin Ratio 0.92 Triglycerides Level 124 Cholesterol Level 139 LDL Cholesterol, Calculated 81 HDL Cholesterol 33 Cholesterol/HDL Ratio 4.2 Thyroid Stimulating Hormone (TSH) 2.010 White Blood Count 7.3 Red Blood Count 4.56 Hemoglobin 14.0 Hematocrit 41.1 Mean Corpuscular Volume 90.1 Mean Corpuscular Hemoglobin 30.7 Mean Corpuscular Hemoglobin Concent 34.1 Red Cell Distribution Width 13.2 Platelet Count 255 Mean Platelet Volume 10.7 H Neutrophils % 56.0 Lymphocytes % 29.1 Monocytes % 10.3 Eosinophils % 3.3 Basophils % 1.0 Nucleated Red Blood Cells % 0.3 H Neutrophils # 4.1 Lymphocytes # 2.1 Monocytes # 0.8 Eosinophils # 0.2 Basophils # 0.1 Nucleated Red Blood Cells # 0.0 Hemoglobin A1c 5.6 Medications Medications Current Medications Ondansetron HCl (Zofran Inj) 4 mg Q6H PRN IV NAUSEA AND/OR VOMITING; Start 06/06 at 20:30 Aspirin (Aspirin) 81 mg DAILY PO Last administered on 03/01/17 09:35; Admin Dose 81 MG; Start 03/01/17 at 09:00 Acetaminophen (Tylenol Tab) 650 mg Q6H PRN PO PAIN LEVEL 1-3 OR FEVER; Start at 20:30 Docusate Sodium (Colace) 100 mg Q12H PRN PO CONSTIPATION; Start 02/28/17 at 20: 30 Bisacodyl (Dulcolax) 5 mg DAILY PRN PO CONSTIPATION; Start 02/28/17 at 20:30 Amlodipine Besylate (Norvasc) 5 mg BID PO Last administered on 03/01/17 09:35 ; Admin Dose 5 MG; Start 02/28/17 at 23:00 Meclizine HCl (Antivert) 12.5 mg BID PRN PO DIZZINESS; Start 02/28/17 at 23:00 Oxybutynin Chloride (Ditropan) 5 mg DAILY PRN PO PRN; Start 02/28/17 at 23:00 Al Hydrox/Mg Hydrox/Simethicone (Mag-Al Plus) 30 ml Q6H PRN PO GASTROINTESTINAL UPSET; Start 03/01/17 at 17:30 ALEKSANDRA CARPIO MD Mar 01, 2017 17:59
[2017-03-02] VITALS (12 sets, daily range): BP systolic 116–129; BP diastolic 64–74; PULSE 62–68; RESP 16–18
[2017-03-02] MEDS: ASPIRIN 81 MG TAB PO SCH (08:25)
[2017-03-02] MEDS: AMLODIPINE 5 MG TAB PO SCH (08:26)
--- NOTE | 2017-03-02 09:46 | RADRPT ---
PROCEDURE: US thyroid. CLINICAL INDICATION: Multiple nodules on CT scan TECHNIQUE: Multiple sonographic images of the thyroid were obtained utilizing a linear array trans ducer with grayscale and color-flow and a Doppler imaging. The images were reviewed on a high-res[employer] PACS workstation. COMPARISON: CTA neck of 02/28/2017 FINDINGS: The right lobe measures 4.1 x 1.1 x 1.4 cm. No right thyroid nodule is seen. The left lobe measures 4.4 x 1.6 x 1.9 cm. There is a 1.9 cm predominantly solid nodule with a small amount of internal vascular flow and approximate 4 mm central calcification in the lower left lobe. There is a 1.7 cm hypoechoic solid nodule with a small amount of internal vascular flow in the mid left lobe. The isthmus measures 3.9 mm. IMPRESSION: 1.9 cm predominantly solid nodule with a small amount of internal vascular flow and approximate 4 mm central calcification in the lower left lobe and 1.7 cm hypoechoic solid nodule with a small amount of internal vascular flow in the mid left lobe. RPTAT: HJES .Quinn Carrillo MD, MD Date Time Electronically viewed and signed by .Quinn Carrillo MD, on 03/02/2017 09:46 .S/
--- NOTE | 2017-03-02 15:29 | PN ---
Date/Time of Note Date/Time of Note DATE: 03/02/17 TIME: 15:28 Assessment/Plan VTE Prophylaxis VTE Prophylaxis Intervention: SCD's Lines/Catheters IV Catheter Type (from Nrsg): Peripheral IV Urinary Cath still in place: No Assessment/Plan Assessment/Plan 86 yo F admitted for ?R sided facial weakness v jaw pain. TIA v TMJ MRI brain to complete stroke work up though at this time clinical scenario more consistent with TMJ #thyroid nodules: incidental finding on imaging: TSH nl, US with nodules -needs outpatient f/u for biopsy #HTN: home BP meds DVT prophx Subjective 24 Hr Interval Summary Free Text/Dictation Feels about the same Exam/Review of Systems Vital Signs Vitals Vital Signs Date Time Temp Pulse Resp B/P Pulse Ox O2 Delivery O2 Flow Rate FiO2 03/02/17 14:52 98.4 64 18 116/64 97 Room Air Intake and Output 03/01/17 03/01/17 03/02/17 15:00 23:00 07:00 Intake Total 650 ml 250 ml Balance 650 ml 250 ml Exam +mild R sided facial droop no mrg lungs clear abd soft no rashes thyroid US IMPRESSION: 1.9 cm predominantly solid nodule with a small amount of internal vascular flow and approximate 4 mm central calcification in the lower left lobe and 1.7 cm hypoechoic solid nodule with a small amount of internal vascular flow in the mid left lobe. Results Result Diagram: 03/01/17 0659 03/01/17 0658 Medications Medications Current Medications Ondansetron HCl (Zofran Inj) 4 mg Q6H PRN IV NAUSEA AND/OR VOMITING; Start 06/06 at 20:30 Aspirin (Aspirin) 81 mg DAILY PO Last administered on 03/02/17 08:25; Admin Dose 81 MG; Start 03/01/17 at 09:00 Acetaminophen (Tylenol Tab) 650 mg Q6H PRN PO PAIN LEVEL 1-3 OR FEVER Last administered on 03/02/17 08:30; Admin Dose 650 MG; Start 02/28/17 at 20:30 Docusate Sodium (Colace) 100 mg Q12H PRN PO CONSTIPATION; Start 02/28/17 at 20: 30 Bisacodyl (Dulcolax) 5 mg DAILY PRN PO CONSTIPATION; Start 02/28/17 at 20:30 Amlodipine Besylate (Norvasc) 5 mg BID PO Last administered on 03/02/17t 08:26 ; Admin Dose 5 MG; Start 02/28/17 at 23:00 Meclizine HCl (Antivert) 12.5 mg BID PRN PO DIZZINESS; Start 02/28/17 at 23:00 Oxybutynin Chloride (Ditropan) 5 mg DAILY PRN PO PRN; Start 02/28/17 at 23:00 Al Hydrox/Mg Hydrox/Simethicone (Mag-Al Plus) 30 ml Q6H PRN PO GASTROINTESTINAL UPSET; Start 03/01/17 at 17:30 ALEKSANDRA CARPIO MD Mar 02, 2017 15:28
--- NOTE | 2017-03-02 17:19 | RADRPT ---
PROCEDURE: MR Brain without contrast. CLINICAL INDICATION: Neurologic deficit, CVA versus TIA. TECHNIQUE: An MRI of the brain was performed on a GE short bore high-definition 3 lo scanner ut ilizing the following sequences: Sagittal and axial T1 weighted, axial T2 weighted, axial FLAIR, cor onal GRE, and axial diffusion weighted with ADC mapping. COMPARISON: CT brain 02/28/2017. FINDINGS: No high signal abnormalities are seen on the diffusion-weighted images to suggest the presence of ac [place] ischemia or recent infarct. There is no evidence of intracranial hemorrhage, mass effect, or mi dline shift. No extra-axial fluid collections are seen. Mild diffuse age-related volume loss is ev ident. Increased T2-weighted/FLAIR signal intensity is noted within the periventricular and deep wh ite matter, consistent with minimal microvascular ischemic disease. The signal intensity is normal within the brainstem and cerebellum. No hypointense signal abnormalities are seen on the GRE images to suggest the presence of blood degradation products. Normal flow voids are visible in the proxima l intracranial arteries and dural sinuses, indicating patency. A small air-fluid level seen in the left maxillary sinus. There is thinning of the ocular lenses, compatible with sequelae from prior c ataract surgery. IMPRESSION: 1. No evidence of acute intracranial pathology. 2. Mild diffuse volume loss with minimal microvascular ischemic disease in the periventricular and deep white matter. 3. Small air-fluid level in the left maxillary sinus. RPTAT: HJAH .Shirin Webb MD, Date Time Electronically viewed and signed by .Shirin Webb MD, on 03/02/2017 17:19 .H/
[2017-03-02] MEDS ORDERED: ASPI81TA3 PO (17:44)
--- NOTE | 2017-03-02 17:48 | PDOCDIS ---
Discharge Instructions CONDITION Patient Condition: Stable FOLLOW UP/APPOINTMENTS Follow-up Plan See your regular doctor this week to discuss your jaw pain, also you had some nodules/lumps in your thyroid. Please discuss these with your regular doctor in case he/she wants to send you to a specialist. Consulte a mcneal mdico habitual esta semana para discutir mcneal dolor en la mandbula , tambin tiene algunos ndulos / bultos en la tiroides. Por favor, hable con mcneal mdico de cabecera si quiere enviarlo a un especialista. ALEKSANDRA CARPIO MD Mar 02, 2017 17:48
--- NOTE | 2017-03-02 17:54 | DS ---
Date/Time of Note Date/Time of Note DATE: 03/02/17 TIME: 17:50 Discharge Summary Admission/Discharge Info Admit Date/Time Feb 28, 2017 at 18:06 Discharge Date/Time Discharge Diagnosis R sided jaw pain, thyroid nodule Patient Condition: Stable Procedures 8.11 CTA brain IMPRESSION: 1. No evidence of occlusion, significant stenosis, or cerebral aneurysm of the [place] or it's major proximal branches. 2. 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 3. Abnormal osseous lucency surrounding a left anterior mandibular tooth, suggesting odontogenic disease. Recommend dental examination. 4. Left maxillary sinus mucosal disease and small air fluid level, suggesting acute left maxillary sinusitis. 5. 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 CTA neck IMPRESSION: 1. No evidence of bilateral internal carotid artery stenosis by NASCET criteria. 2. The thyroid gland is enlarged and contains multiple heterogeneous thyroid nodules, some demonstrating coarse calcifications. The largest nodule measures up to 18 mm and is located in the left thyroid lobe. Consider thyroid ultrasound for further evaluation. 3. Abnormal osseous lucency surrounding a left anterior mandibular tooth, suggesting odontogenic disease. Recommend dental examination. 4. Multilevel degenerative changes of the cervical spine, most prominent at C5- C6. NCCT head IMPRESSION: No acute intracranial hemorrhage or mass effect. 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 8.12 thyroid US IMPRESSION: 1.9 cm predominantly solid nodule with a small amount of internal vascular flow and approximate 4 mm central calcification in the lower left lobe and 1.7 cm hypoechoic solid nodule with a small amount of internal vascular flow in the mid left lobe. 8.13 MRI brain FINDINGS: No high signal abnormalities are seen on the diffusion-weighted images to suggest the presence of acute ischemia or recent infarct. There is no evidence of intracranial hemorrhage, mass effect, or midline shift. No extra-axial fluid collections are seen. Mild diffuse age-related volume loss is evident. Increased T2-weighted/FLAIR signal intensity is noted within the periventricular and deep white matter, consistent with minimal microvascular ischemic disease. The signal intensity is normal within the brainstem and cerebellum. No hypointense signal abnormalities are seen on the GRE images to suggest the presence of blood degradation products. Normal flow voids are visible in the proximal intracranial arteries and dural sinuses, indicating patency. A small air-fluid level seen in the left maxillary sinus. There is thinning of the ocular lenses, compatible with sequelae from prior cataract surgery. IMPRESSION: 1. No evidence of acute intracranial pathology. 2. Mild diffuse volume loss with minimal microvascular ischemic disease in the periventricular and deep white matter. 3. Small air-fluid level in the left maxillary sinus. TSH 2.01 Hx of Present Illness Chief complaint: Slurred speech This is a 86-year-old woman brought in by daughter for slurred speech and right- sided facial weakness beginning around 5 PM yesterday about 24 hours ago. The daughter states that her mom was just sitting and eating food and all of a sudden she noticed food dripping from the right side of her mouth she also did experience pain in her jaw. Daughter states she has had no fevers or chills, no weakness in her arms or legs, no fall, no head injury, no seizure activity. Denies any changes in her vision. Denies any lightheadedness or loss of consciousness. Allergies: NKDA Medications: See SEP Hospital Course Pt admitted for R sided facial weakness and slurred speech. Neuroimaging with no evidence of stroke. Pt incidentally found to have thyroid nodule. TSH normal , advised to f/u as outpatient. Imaging also with evidence of dental cavity, pt advised to f/u in outpatient setting. No changes from admit meds. copy of this dc summary personally faxed to PCP Home Meds Reported Medications Amlodipine Besylate* (Norvasc*) 5 Mg Tablet, 5 MG PO BID, TAB 02/28/17 Ibuprofen* (Ibuprofen*) 600 Mg Tablet, 600 MG PO Q8 Y for NEEDED, TAB 02/28/17 Meclizine Hcl* (Meclizine Hcl*) 25 Mg Tablet, 12.5 MG PO NEEDED Y for DIZZINESS, TAB 02/28/17 Oxybutynin Chloride* (Ditropan*) 5 Mg Tab, 5 MG PO DAILY Y for PRN, TAB 02/28/17 Follow-up Plan PCP within 7 days Primary Care Provider Vinny Sandoval Time spent on discharge: > 30 minutes ALEKSANDRA CARPIO MD Mar 02, 2017 17:54
--- NOTE | 2017-03-02 19:15 | RADRPT ---
PROCEDURE: XR Facial Bones. CLINICAL INDICATION: 78-year-old female. Right jaw pain. TECHNIQUE: Two views of the facial bones are available for review. COMPARISON: No prior studies are available for comparison. FINDINGS: Frontal strange' view and a lateral view of the face are provided. There is a fluid level in the lef t maxillary sinus also demonstrated on same day MRI. Negative for evidence of acute fracture of eit her orbit. Right ZMC is unremarkable. Left ZMC is incompletely imaged. The frontal sinus and the ethmoid air cells are well-aerated. Mastoid air cells appear well aerated. Negative for evidence o f acute nasal bone or nasal spine fracture. Most of the patient's teeth are missing. IMPRESSION: Fluid level left maxillary sinus. Correlate clinically for signs of sinusitis. Negative for evidence of acute bony abnormality on limited imaging of the face. Please note that ded icated imaging of the mandible was not performed. If there is clinical concern for a mandibular fra cture, recommend dedicated x-rays or CT. RPTAT: HCTS Physician Fabio Date Time Electronically viewed and signed by Physician Fabio on 03/02/2017 19:15 /
--- NOTE | 2017-03-02 19:17 | RADRPT ---
PROCEDURE: TMJ x-rays. CLINICAL INDICATION: 86-year-old female. Right jaw pain. TECHNIQUE: AP and bilateral open and close mouth views of the temporomandibular joints. COMPARISON: None. FINDINGS: The bilateral open mouth views demonstrate normal anterior translation of the mandibular condyles fr om the glenoid fossae onto the articular eminences. No productive osseous changes are seen at both temporomandibular joints. No fracture is identified. The visualized paranasal sinuses and mastoid air cells are clear. IMPRESSION: Normal radiographic appearance of the bilateral temporomandibular joints. If there is continued cli nical concern for temporomandibular joint pathology, further evaluation with MRI may be useful. HPTAT: HCTS Physician Fabio Date Time Electronically viewed and signed by Physician Fabio on 03/02/2017 19:16 /
== END 2017-03-02 20:28 | disposition home or self-care (01) | DRG 93 ==
LOC: E/R 15:04 → MS4 18:06
PROVIDERS: ADMIT Internal Medicine; ATTEND Internal Medicine
DX: R29.810 Facial weakness (principal); I10 Essential (primary) hypertension; R47.81 Slurred speech; R68.84 Jaw pain; E04.1 Nontoxic single thyroid nodule; J01.00 Acute maxillary sinusitis, unspecified; Z79.82 Long term (current) use of aspirin; Z90.49 Acquired absence of other specified parts of digestive tract
CPT/HCPCS: 36415; 70140; 70330; 70450; 70496; 70498; 70551; 71010; 76536; 80053; 80061; 81001; 83036; 83690; 84443; 84484; 85025; 92610; 93005; 93306; 97162; J7030; Q9967